=== PATIENT | female | born 1985 | race Caucasian/White ===

== ENCOUNTER → 2019-11-26 | Day surgery (SDC) | payer BC ==
[~2019-11-26] MED LIST: CEPHALEXIN; DEXMEDETOMIDINE HCL 2 ML ONE; FENTANYL CITRATE/PF 100MCG/2 ML INJ ONE; KETAMINE HCL INJ 50 MG/ML 10 ML VIAL ONE; MIDAZOLAM HCL 2 MG/2 ML VIAL ONE; PANTOPRAZOLE 40 MG 10ML VIAL ONE; PROPOFOL IV EMULSION 10 MG/ML 50 ML VIAL ONE
[2019-11-26 08:57] VITALS: BP 99/63
--- NOTE | 2019-11-26 15:39 | Operative Report ---
DATE OF PROCEDURE: 11/26/2019 SURGEON: Richy Walker MD PROCEDURE: EGD with biopsies. INDICATIONS FOR EGD: Upper abdominal pain. MEDICATIONS: The patient was done under MAC, please see anesthesiologist's note. PROCEDURE IN DETAIL: With the patient in left lateral decubitus position, flexible fiberoptic Olympus gastroscope was introduced into the esophagus under direct visualization without any difficulty. There was some patchy erythema noted in distal esophagus. The scope was then advanced with ease into her stomach. Mucosa overlying the antrum and the body revealed some patchy erythema and [id number] edema and biopsies were obtained and sent to stain for H pylori. The pylorus was of normal contour and shape, was intubated with ease, and the scope was advanced all the way to the second portion of the duodenum. The scope was then withdrawn slowly and the mucosa overlying the proximal second portion and the duodenal bulb appeared to be within normal limits. Some biopsies were obtained to rule out sprue. There was some excessive nodularity noted in the duodenal bulb along the anterior wall approximately and biopsies were obtained. The scope was then withdrawn back into the stomach and retroflexed and mucosa overlying the fundus and cardia appeared to be within normal limits. The scope was then straightened out and it was subsequently withdrawn and patient tolerated procedure well. IMPRESSION: 1. Distal esophagitis, mild. 2. Gastritis, biopsied, and biopsies sent to stain for H pylori. 3. Focal nodularity duodenal bulb, biopsied. 4. Rule out sprue. PLAN: Follow up histology. Initiate Protonix 40 mg one p.o. q.a.m. a.c. Richy Walker MD [facility] [place]/MODL /[id number] cc: Ranulfo Silver MD
== END | disposition home or self-care (01) ==
LOC: OR 05:55
PROVIDERS: ATTEND Internal Medicine Gastroenterology
DX: K29.70 Gastritis, unspecified, without bleeding (principal); K29.80 Duodenitis without bleeding; Q40.8 Other specified congenital malformations of upper alimentary tract; K20.9 Esophagitis, unspecified; K59.09 Other constipation; Z68.34 Body mass index [BMI] 34.0-34.9, adult
CPT/HCPCS: 43239; 81025; J2250; J3010

== ENCOUNTER → 2019-12-01 | Outpatient (CLI) | payer BC ==
[~2019-12-01] MED LIST changes: -DEXMEDETOMIDINE HCL 2 ML ONE; -FENTANYL CITRATE/PF 100MCG/2 ML INJ ONE; -KETAMINE HCL INJ 50 MG/ML 10 ML VIAL ONE; -MIDAZOLAM HCL 2 MG/2 ML VIAL ONE; -PANTOPRAZOLE 40 MG 10ML VIAL ONE; -PROPOFOL IV EMULSION 10 MG/ML 50 ML VIAL ONE
--- NOTE | 2019-12-01 09:27 | Diagnostic Imaging Report ---
EXAM: US ABDOMEN COMPLETE DATE: 12/01/2019 7:49 AM INDICATION: Right upper quadrant abdominal pain COMPARISON: None TECHNIQUE: Transverse and longitudinal valdes scale and color doppler sonographic images of the upper abdomen were obtained. FINDINGS: LIVER 14.5 cm in the right midclavicular line. Increased echogenicity of the liver with normal contour, no masses. SPLEEN 10.7 cm in maximum diameter. Normal echogenicity, no masses. GALLBLADDER Status post cholecystectomy. BILE DUCTS No intra nor extra-hepatic biliary dilation. Common bile duct measures 5mm PANCREAS: Visualized portions are normal. RIGHT KIDNEY: 9.6 cm Echogenicity: Normal Collecting System: No hydronephrosis Stones: None Cyst/Mass: None LEFT KIDNEY: 10.4 cm Echogenicity: Normal Collecting System: No hydronephrosis Stones: None Cyst/Mass: None VESSELS: Aorta: Visualized portions are within normal size limits Inferior Vena Cava: Visualized portions are normal Main Portal Vein: 0.7 cm, normal size with hepatopetal flow. FREE FLUID: None IMPRESSION: Status post cholecystectomy. Diffuse hepatic steatosis. Signed by: Aminata Alvarado MD on 12/01/2019 9:24 AM
== END ==
LOC: US 07:41
PROVIDERS: ATTEND Internal Medicine Gastroenterology
DX: R10.11 Right upper quadrant pain (principal)
CPT/HCPCS: 76700

== ENCOUNTER → 2019-12-16 | Outpatient (CLI) | payer BC ==
[~2019-12-16] MED LIST changes: +DIATRIZOATE MEGL/DIATRIZOA SOD 30 ML BTL PO ONE; +IOPAMIDOL 370 MG/ML 200 ML INFUS..BTL INJ ONE; +SODIUM CHLORIDE 0.9% 50ML 50 ML ONE
--- NOTE | 2019-12-16 16:20 | Diagnostic Imaging Report ---
CT of the abdomen and pelvis History: Right-sided abdominal pain Comparison: No CT comparisons available for review, comparison is made to abdominal ultrasound dated 12/01/2019. Technique: Multidetector CT scanning of the abdomen and pelvis was performed from the level of the lung bases to the inferior pubic ramus, with intravenous administration of non-ionic contrast and with oral contrast. DOSE REDUCTION: The examination was performed according to departmental dose-optimization program which includes automated exposure control, adjustment of the mA and/or kV according to patient size and/or use of iterative reconstruction technique. Discussion: The lung bases are clear. No focal hepatic lesions are identified. The gallbladder is surgically absent. No intrahepatic or extrahepatic biliary dilatation. The spleen is within normal limits. The bilateral adrenal glands are unremarkable. The pancreas is homogeneous in attenuation. There is no pancreatic ductal dilatation or peripancreatic inflammatory stranding. The kidneys are normal in size and enhance symmetrically. There is no hydroureteronephrosis bilaterally. No renal calculi are identified. The stomach, small, and large bowel are nondistended. There is no evidence of obstruction. No bowel wall thickening is appreciated. The appendix is normal in caliber. There is no free intraperitoneal air or ascites. The abdominal aorta is of normal course and caliber. No enlarged abdominal or retroperitoneal lymph nodes are identified. The uterus and bilateral adnexa are within normal limits. The urinary bladder is unremarkable. There are no acute osseous abnormalities. IMPRESSION: 1. No CT evidence of acute abdominal or pelvic pathology. 2. Status post cholecystectomy. Signed by: Jamel Cox MD on 12/16/2019 4:18 PM
== END ==
LOC: CT 14:06
PROVIDERS: ATTEND Internal Medicine Gastroenterology
DX: R10.9 Unspecified abdominal pain (principal)
CPT/HCPCS: 74177; 81025; Q9967